=== PATIENT | male | born 1975 | race African-American/Black ===

== ENCOUNTER 2018-03-29 07:24 | Emergency (ER) | payer MEDICAID, OTHER ==
[~2018-03-29] VITALS: Ht 180.3 cm; Wt 67.0 kg
[2018-03-29] MEDS ORDERED: ASPI-1159 PO (07:33)
[2018-03-29 08:35] LABS: BASOPHILS % 1.2 % (0.0-2.0); EOSINOPHILS % 1.8 % (0.0-5.0); HEMATOCRIT. 45.6 % (42.0-52.0); HEMOGLOBIN. 15.7 g/dL (14.0-18.0); LYMPHOCYTES % 39.2 % (20.0-50.0); MEAN CORPUSCULAR HEMOGLOBIN 33.4 pg (28.0-32.0); MEAN PLATELET VOLUME 8.8 fl (7.4-10.4); MONOCYTES % 9.8 % (2.0-8.0); PLATELET 187 x1000/uL (130-400); RED CELL DISTRIBUTION WIDTH 13.1 % (11.6-14.6)
[2018-03-29 08:39] LABS: CHLORIDE 103 mEq/L (98-107)
[2018-03-29 08:42] LABS: PROTHROMBIN TIME 10.8 sec (9.4-11.6)
[2018-03-29] MEDS ORDERED: IBUPROFEN 600MG TABLET PO ONE (09:00)
[2018-03-29 10:37] VITALS: BP 143/82
== END 2018-03-29 10:38 | disposition home or self-care (01) ==
LOC: ER 08:18
DX: R07.9 Chest pain, unspecified (principal); D72.819 Decreased white blood cell count, unspecified
CPT/HCPCS: 36415; 71045; 80053; 83880; 84484; 85025; 85610; 93005; 99285

== ENCOUNTER 2018-04-24 03:00 | Emergency (ER) | payer MEDICAID ==
[~2018-04-24] VITALS: Ht 180.3 cm; Wt 69.0 kg
[~2018-04-24 03:00] MED LIST: ASPI-1159 PO
[2018-04-24] MEDS ORDERED: VISCOUS LIDOCAINE 2% 15 ML UDC PO STA (03:22)
[2018-04-24] MEDS ORDERED: MAGNESIUM/ALUMINUM HYDROXIDE/SIMETHICONE 30ML UDC PO STA (03:22)
[2018-04-24 04:44] LABS: BASOPHILS % 0.6 % (0.0-2.0); EOSINOPHILS % 2.2 % (0.0-5.0); HEMATOCRIT. 44.6 % (42.0-52.0); HEMOGLOBIN. 15.3 g/dL (14.0-18.0); LYMPHOCYTES % 46.9 % (20.0-50.0); MEAN CORPUSCULAR HEMOGLOBIN 33.5 pg (28.0-32.0); MEAN CORPUSCULAR VOLUME 97.3 fL (80.0-94.0); MEAN PLATELET VOLUME 9.3 fl (7.4-10.4); NEUTROPHILS % 42.3 % (40.0-76.0); PLATELET 164 x1000/uL (130-400); RED BLOOD CELL COUNT 4.58 mill/uL (4.7-6.1); RED CELL DISTRIBUTION WIDTH 13.5 % (11.6-14.6)
[2018-04-24 04:47] LABS: CHLORIDE 101 mEq/L (98-107)
[2018-04-24 05:36] VITALS: BP 120/70
== END 2018-04-24 05:37 | disposition home or self-care (01) ==
LOC: ER 03:00
DX: K29.70 Gastritis, unspecified, without bleeding (principal)
CPT/HCPCS: 36415; 80053; 83690; 85025; 93005; 99285

== ENCOUNTER 2018-05-22 16:26 | Emergency (ER) | payer MEDICAID ==
[~2018-05-22] VITALS: Ht 177.8 cm; Wt 68.0 kg
[2018-05-22] MEDS ORDERED: FAMOTIDINE 20MG/2ML VIAL IV ONE (17:45)
[2018-05-22] MEDS ORDERED: SODIUM CHLORIDE 0.9% 1,000 ML IV ONE (17:45)
[2018-05-22] MEDS ORDERED: VISCOUS LIDOCAINE 2% 15 ML UDC PO ONE (17:45)
[2018-05-22] MEDS ORDERED: MAGNESIUM/ALUMINUM HYDROXIDE/SIMETHICONE 30ML UDC PO ONE (17:45)
[2018-05-22 18:31] LABS: BASOPHILS % 1.2 % (0.0-2.0); EOSINOPHILS % 0.7 % (0.0-5.0); HEMATOCRIT. 44.6 % (42.0-52.0); LYMPHOCYTES % 31.7 % (20.0-50.0); MEAN CORPUSCULAR HEMOGLOBIN 33.1 pg (28.0-32.0); MEAN PLATELET VOLUME 8.6 fl (7.4-10.4); MONOCYTES % 12.7 % (2.0-8.0); NEUTROPHILS % 53.7 % (40.0-76.0); PLATELET 213 x1000/uL (130-400); RED BLOOD CELL COUNT 4.55 mill/uL (4.7-6.1); RED CELL DISTRIBUTION WIDTH 13.3 % (11.6-14.6)
[2018-05-22 18:36] LABS: CHLORIDE 102 mEq/L (98-107)
[2018-05-22] MEDS ORDERED: KETOROLAC 15MG/ML VIAL IV ONE (19:00)
[2018-05-22 19:09] LABS: CLARITY URINE CLEAR (CLEAR); COLOR URINE YELLOW (YELLOW); KETONES URINE NEGATIVE (NEGATIVE); LEUKOCYTE ESTERASE URINE NEGATIVE (NEGATIVE); NITRITE URINE NEGATIVE (NEGATIVE); OCCULT BLOOD URINE NEGATIVE (NEGATIVE); PH URINE >=9.0 (4.5-8.0); PROTEIN URINE NEGATIVE (NEGATIVE); SPECIFIC GRAVITY URINE 1.011 (1.005-1.030)
[2018-05-22] MEDS ORDERED: LORAZEPAM 2MG/ML CPJ IV ONE (19:15)
[2018-05-23 00:24] VITALS: BP 118/82
== END 2018-05-23 00:25 | disposition home or self-care (01) ==
LOC: ER 19:12
DX: R07.89 Other chest pain (principal); R10.13 Epigastric pain; Z98.890 Other specified postprocedural states; Z88.6 Allergy status to analgesic agent
CPT/HCPCS: 36415; 71045; 74176; 80053; 81003; 83690; 83880; 84484; 85025; 93005; 96374; 96375; 99285; G0482; J1885; J2060; J3490; J7030; Z7610

== ENCOUNTER 2018-08-26 11:05 | Inpatient (IN) | payer MEDICAID ==
[~2018-08-26] VITALS: Ht 180.3 cm; Wt 65.3 kg
[2018-08-26] MEDS ORDERED: SODIUM CHLORIDE 0.9% 1,000 ML IV ONE (12:57)
[2018-08-26] MEDS ORDERED: ASPIRIN 81MG TABLET PO ONE (13:00)
[2018-08-26 13:02] LABS: CHLORIDE 100 mEq/L (98-107)
[2018-08-26 13:08] LABS: BASOPHILS % 0.4 % (0.0-2.0); EOSINOPHILS % 0.8 % (0.0-5.0); HEMATOCRIT. 45.4 % (42.0-52.0); HEMOGLOBIN. 15.5 g/dL (14.0-18.0); LYMPHOCYTES % 27.8 % (20.0-50.0); MEAN CORPUSCULAR HEMOGLOBIN 33.2 pg (28.0-32.0); MEAN CORPUSCULAR VOLUME 97.2 fL (80.0-94.0); MEAN PLATELET VOLUME 8.9 fl (7.4-10.4); MONOCYTES % 8.7 % (2.0-8.0); NEUTROPHILS % 62.3 % (40.0-76.0); PLATELET 212 x1000/uL (130-400); RED BLOOD CELL COUNT 4.67 mill/uL (4.7-6.1); RED CELL DISTRIBUTION WIDTH 13.6 % (11.6-14.6)
[2018-08-26 13:10] LABS: ETHANOL BLOOD < 10 mg/dL
[2018-08-26 13:12] LABS: CREATINE KINASE 309 IU/L (39-308)
[2018-08-26 13:13] LABS: CLARITY URINE CLEAR (CLEAR); COLOR URINE YELLOW (YELLOW); KETONES URINE NEGATIVE (NEGATIVE); LEUKOCYTE ESTERASE URINE NEGATIVE (NEGATIVE); NITRITE URINE NEGATIVE (NEGATIVE); OCCULT BLOOD URINE NEGATIVE (NEGATIVE); PROTEIN URINE NEGATIVE (NEGATIVE); SPECIFIC GRAVITY URINE 1.001 (1.005-1.030); UROBILINOGEN URINE 0.2 E.U./dL (0.2-1.0)
[2018-08-26 13:15] LABS: CREATINE KINASE MB FRACTION 1.5 ng/mL (0.5-3.6)
[2018-08-26 13:24] LABS: *AMPHETAMINES SCREEN URINE NEGATIVE (NEGATIVE); CANNABINOID URINE SCREEN NEGATIVE (NEGATIVE); OPIATES URINE SCREEN NEGATIVE (NEGATIVE); PHENCYCLIDINE URINE SCREEN NEGATIVE (NEGATIVE)
[2018-08-26 13:25] LABS: *BARBITURATES SCREEN URINE NEGATIVE (NEGATIVE); *BENZODIAZEPINES SCREEN URINE NEGATIVE (NEGATIVE); *COCAINE SCREEN URINE NEGATIVE (NEGATIVE); METHADONE URINE SCREEN NEGATIVE (NEGATIVE)
[2018-08-26 15:34] LABS: INR 1.1; PROTHROMBIN TIME 10.8 sec (9.1-11.1)
[2018-08-26 17:24] VITALS: BP 157/88
[2018-08-26] MEDS ORDERED: ACETAMINOPHEN 325MG TABLET PO PRN (17:45)
[2018-08-26] MEDS ORDERED: GUAIFENESIN 200MG/10ML SUGAR FREE UDC PO PRN (17:45)
[2018-08-26] MEDS ORDERED: DOCUSATE SODIUM 100MG CAPSULE PO PRN (17:45)
[2018-08-26] MEDS ORDERED: IPRATROPIUM/ALBUTEROL 0.5-3(2.5)MG/3ML NEB INH PRN (17:45)
[2018-08-26] MEDS ORDERED: CLONIDINE 0.1MG TABLET PO PRN (17:45)
[2018-08-26] MEDS ORDERED: ONDANSETRON HCL 4MG/2ML INJ IV PRN (17:45)
[2018-08-26 20:00] VITALS: BP 124/71
[2018-08-26] MEDS: MAGNESIUM/ALUMINUM HYDROXIDE/SIMETHICONE 30ML UDC PO PRN (22:10)
[2018-08-26] MEDS: HYDROCODONE/ACETAMINOPHEN 5/325MG TABLET PO PRN (22:12)
[2018-08-26 22:20] LABS: CREATINE KINASE 233 IU/L (39-308)
[2018-08-26 22:22] LABS: CREATINE KINASE MB FRACTION 1.4 ng/mL (0.5-3.6)
[2018-08-27] VITALS: BP 130/74
[2018-08-27 04:00] VITALS: BP 115/62
[2018-08-27 06:42] LABS: BASOPHILS % 0.7 % (0.0-2.0); EOSINOPHILS % 2.3 % (0.0-5.0); HEMOGLOBIN. 15.1 g/dL (14.0-18.0); MEAN CORPUSCULAR HEMOGLOBIN 33.7 pg (28.0-32.0); MEAN CORPUSCULAR VOLUME 98.2 fL (80.0-94.0); MEAN PLATELET VOLUME 8.5 fl (7.4-10.4); MONOCYTES % 12.6 % (2.0-8.0); NEUTROPHILS % 47.4 % (40.0-76.0); PLATELET 208 x1000/uL (130-400); RED BLOOD CELL COUNT 4.48 mill/uL (4.7-6.1); RED CELL DISTRIBUTION WIDTH 12.8 % (11.6-14.6)
[2018-08-27 07:25] LABS: CHLORIDE 103 mEq/L (98-107)
[2018-08-27 07:44] LABS: CREATINE KINASE 186 IU/L (39-308); LDL CHOLESTEROL 94 mg/dL (5-100)
[2018-08-27 07:45] LABS: CREATINE KINASE MB FRACTION < 1.0 ng/mL (0.5-3.6); HDL CHOLESTEROL 59 mg/dL (40-59)
[2018-08-27 07:46] LABS: T4 FREE 1.06 ng/dL (0.76-1.46)
[2018-08-27 08:00] VITALS: BP 119/61
[2018-08-27] MEDS: AMLODIPINE 10MG TABLET PO SCH (09:38)
[2018-08-27 11:30] LABS: T4 FREE 1.1 ng/dL (0.76-1.46)
[2018-08-27 11:52] LABS: FOLIC ACID (FOLATE) SERUM 10.5 ng/mL (>5.38)
[2018-08-27 15:28] LABS: CREATINE KINASE 192 IU/L (39-308)
[2018-08-27] MEDS ORDERED: GADOBENATE DIMEGLUMINE 529 MG/ML 10ML IV ONE (16:19)
[2018-08-27 16:57] VITALS: BP 116/61
[2018-08-27 20:00] VITALS: BP 109/61
[2018-08-27] MEDS: HYDROCODONE/ACETAMINOPHEN 5/325MG TABLET PO PRN (20:48)
[2018-08-28] VITALS: BP 113/61
[2018-08-28 04:00] VITALS: BP 98/58
[2018-08-28 07:49] LABS: BASOPHILS % 0.5 % (0.0-2.0); EOSINOPHILS % 2.8 % (0.0-5.0); HEMATOCRIT. 46.1 % (42.0-52.0); HEMOGLOBIN. 15.6 g/dL (14.0-18.0); LYMPHOCYTES % 41.9 % (20.0-50.0); MEAN CORPUSCULAR HEMOGLOBIN 33.1 pg (28.0-32.0); MEAN CORPUSCULAR VOLUME 97.8 fL (80.0-94.0); MEAN PLATELET VOLUME 8.5 fl (7.4-10.4); NEUTROPHILS % 42.8 % (40.0-76.0); PLATELET 212 x1000/uL (130-400); RED BLOOD CELL COUNT 4.71 mill/uL (4.7-6.1); RED CELL DISTRIBUTION WIDTH 13.3 % (11.6-14.6)
[2018-08-28 08:00] VITALS: BP 115/64
[2018-08-28 08:05] LABS: CHLORIDE 102 mEq/L (98-107)
[2018-08-28] MEDS: AMLODIPINE 10MG TABLET PO SCH (08:28)
[2018-08-28] MEDS: MAGNESIUM/ALUMINUM HYDROXIDE/SIMETHICONE 30ML UDC PO PRN (09:50)
[2018-08-28] MEDS ORDERED: AMLO10TA80 PO (11:18)
[2018-08-28 11:32] VITALS: BP 115/64
[2018-08-28 12:00] VITALS: BP 116/62
== END 2018-08-28 15:35 | disposition home or self-care (01) | DRG 203 ==
LOC: ER 12:57 → 8WST 14:59 → EDBEDREQ 15:02 → EDBEDREQTM 15:02 → ENRESERV 15:27 → 8WST 17:22
PROVIDERS: ADMIT Internal Medicine; ATTEND Internal Medicine
DX: M94.0 Chondrocostal junction syndrome [Tietze] (principal); E46 Unspecified protein-calorie malnutrition; M48.02 Spinal stenosis, cervical region; E83.51 Hypocalcemia; I48.92 Unspecified atrial flutter; I48.91 Unspecified atrial fibrillation; D72.819 Decreased white blood cell count, unspecified; R07.89 Other chest pain; K29.70 Gastritis, unspecified, without bleeding; I10 Essential (primary) hypertension; M47.892 Other spondylosis, cervical region; M48.061 Spinal stenosis, lumbar region without neurogenic claudication; M47.812 Spondylosis without myelopathy or radiculopathy, cervical region; M54.10 Radiculopathy, site unspecified; M50.90 Cervical disc disorder, unspecified, unspecified cervical region; R26.9 Unspecified abnormalities of gait and mobility; Z68.28 Body mass index [BMI] 28.0-28.9, adult; Z79.82 Long term (current) use of aspirin
CPT/HCPCS: 36415; 70553; 71045; 72141; 72146; 72148; 80061; 80305; 82550; 82553; 82607; 82746; 83036; 83735; 83880; 84439; 84443; 84481; 84484; 93005; 93306; 93970; 96360; 97162; 97166; 99285; A9577; G0482; J7030